=== PATIENT | male | born 2000 | race Caucasian/White ===

== ENCOUNTER 2024-12-14 12:34 | Emergency (ER) | payer BC, SELFPAY ==
[2024-12-14 12:37] VITALS: BP 112/71
[2024-12-14 12:58] LABS: % Basophils 0.6 % (0-2); % Eosinophils 1.2 % (0-6); % Immature Granulocytes 0.5 % (0-0.5); % Lymphocytes 23.5 % (20.5-51.1); % Monocytes 7.1 % (1.7-9.3); % Neutrophils 67.1 % (42.2-75.2); Absolute Basophils 0.1 10^3/uL (0-0.2); Absolute Eosinophils 0.1 10^3/uL (0-0.7); Absolute Monocytes 0.6 10^3/uL (0.1-0.6); Absolute Neutrophils 5.8 10^3/uL (1.4-6.5); Hematocrit 48.9 % (39.0-52.0); Hemoglobin 17.6 g/dL (13.0-18.0); Mean Corpuscular Hgb 29.2 pg (27.0-31.0); Mean Corpuscular Volume 81.2 fL (80.0-94.0); Mean Platelet Volume 9.5 fL (7.4-10.4); Nucleated Red Blood Cells % 0 % (-); Platelet Count 264 10^3/uL (130-400); Red Blood Cell Count 6.02 10^6/uL (4.70-6.10); Red Cell Dist. Width 12.1 % (11.5-14.5); White Blood Cell Count 8.6 10^3/uL (4.8-10.8)
--- NOTE | 2024-12-14 14:14 | ED.GENMED ---
History of Present Illness
General
Chief Complaint: Chest Pain
Time Seen by Provider: 12/14/24 14:13
History of Present Illness
History of Present Illness:
REVIEW OF OLD RECORDS
- The patient has no significant past medical history and there are no old records available for review in [facility]
Note:
CHIEF COMPLAINT(S)
Chest tightness and shortness of breath.
HISTORY OF PRESENT ILLNESS
The patient is a 24-year-old male who presents with a chief complaint of chest tightness and shortness of breath. The symptoms started approximately four to five days ago. About a month and a half ago, the patient experienced a similar sensation
described as 'slight heaviness' in the chest, which resolved after two days. Recently, he has been waking up with a 'tightness' sensation, raising concerns about symptom progression. The patient reports increased symptoms, such as shortness of
breath, with exertion, like walking up stairs. An initial electrocardiogram showed an incomplete right bundle branch block with no acute ischemic changes. Initial laboratory tests included a complete blood cell count, which was normal. However,
there were issues with serum chemistry results due to hemolysis. A repeat bloodwork was suggested to ensure accurate results, specifically concerning the troponin and potassium levels. The patient is a smoker and mentioned having something in his
throat, possibly related to smoking. Physical examination noted slight discomfort in the back, particularly when standing. The patient has no noticeable pain upon palpation of the chest. The healthcare team recommended a chest X-ray.
ADDITIONAL HISTORY OBTAINED FROM SOURCES OTHER THAN THE PATIENT
Per laboratory staff, the blood samples showed hemolysis, preventing accurate analysis of certain tests.
CHRONIC MEDICAL CONDITIONS SIGNIFICANTLY AFFECTING CARE
The patient has a history of smoking, which is relevant to the current presentation of chest symptoms.
FAMILY HISTORY
The patients father has a history of coronary artery disease with a coronary stent placed at age 55, indicating familial cardiac risk.
SOCIAL HISTORY
The patient is a smoker, which is a significant consideration in evaluating his symptoms and risk factors.
REVIEW OF SYSTEMS
- Cardiovascular: Reports chest tightness that worsens with exertion.
- Respiratory: Experiences shortness of breath, particularly upon exertion.
- Musculoskeletal: Reports slight back discomfort when standing.
PHYSICAL EXAM
- Respiratory: Auscultation revealed Ronchi, likely related to smoking.
- Musculoskeletal: Slight back discomfort noted, particularly when standing.
- Nursing notes reviewed and vital signs reviewed.
PLAN
- Repeat bloodwork to assess serum chemistry and troponin levels.
- Obtain a chest X-ray to evaluate potential respiratory causes for current symptoms.
DIFFERENTIAL DIAGNOSIS
The Differential Diagnosis includes, in no particular order and is not limited to:
1. Anxiety-related chest discomfort
2. Gastroesophageal reflux disease
3. Costochondritis
4. Atypical chest pain
5. Pulmonary embolism
6. Myocardial ischemia
7. Pneumonia
8. Asthma exacerbation
9. Acute bronchitis
10. Pneumothorax
RADIOLOGY
- Chest x-ray shows no consolidation
EKG
- Sinus 61, incomplete right bundle branch block, no acute ST abnormality, no old to compare
LABS
- CBC and chemistries unremarkable
UPDATE
-12/14/24 - 15:20
The patients recent blood work and x-ray revealed no signs of a heart attack or pneumonia, although seeing a enlisted advisor is recommended due to persistent chest tightness. The x-ray appeared normal, but confirmation from a radiologist is pending. No
signs of consolidation were noted, potentially indicating stress or smoking-related discomfort. Discontinuation of smoking was discussed to reduce long-term cardiovascular risks, especially with a family history of heart issues. The patient has been
advised to use [id number] Motrin for inflammation rather than aspirin, due to the latter�s gastrointestinal side effects. A breathing treatment will be administered before discharge to assess any potential reactive airway issues linked to
smoking. If improvement is noted, an inhaler may be considered. Discharge preparations are underway.
On reassessment at 3:35 PM, the patient reports no significant improvement after DuoNebs were given but he appears very comfortable with no apparent shortness of breath. Will try NSAIDs. I also recommend that he follows up with cardiology.
Phy Exam
Physical Exam
Physical Exam:
See HPI
Scores
Heart Score for Chest Pain Patients
STEMI patient?: Not applicable
Course
Orders/Labs/Results
Orders:
Orders
12/14/24 12:36
Electrocardiogram (*1) Urgent
Reason for Study: Chest Pain
Cardiac Monitoring- Treatment ONCE
EKG- Treatment ONCE
IV Insert/Care/Rem.- Treatment PRN
O2 Therapy [RESP] Urgent
Titrate/Wean O2 to maintain O2 sat greater than (%): 90
Special Instructions: Maintain sats >/=90%
Pulse Ox/spot Check [RESP] Urgent
Quantity: 1
Special Instructions: ON ROOM AIR
12/14/24 12:48
Complete Blood Count/With Diff Urgent
12/14/24 14:21
CR Chest - 2 Views Urgent
Comment:
Reason For Exam: pain
12/14/24 14:38
Comprehensive Metabolic Panel Urgent
Troponin I Urgent
12/14/24 15:20
Ipratropium/Albuterol Sulfate [Duoneb] 3 ml INH R NOW ONE
Abnormal Lab Results
12/14/24
14:38
Glucose 104 H mg/dl
(70-99)
ALT 132 H U/L
(0-50)
12/14/24 12:48
12/14/24 14:38
Vital Signs
Initial and Last Documented VS:
Initial Vital Signs
Temp Pulse Resp BP Pulse Ox
36.8 C 65 17 112/71 99
12/14/24 12:37 12/14/24 12:37 12/14/24 12:37 12/14/24 12:37 12/14/24 12:37
Last Documented Vital Signs
Temp Pulse Resp BP Pulse Ox
36.8 C 55 17 112/94 99
12/14/24 12:37 12/14/24 15:28 12/14/24 12:37 12/14/24 15:30 12/14/24 15:28
*Pulse Oximetry
Patient hypoxic: no (99% on room air)
*EKG
Interpreted by ED Provider?: Yes
EKG Intrepretation Date: 12/14/24
EKG Intrepretation Time: 14:15
Interpretation: normal
Heart Rate: 61
[place]: normal axis
Interval: normal interval
QRS Pattern: right bundle branch block (Incomplete right bundle branch block)
Ischemia: non-specific ST changes
*Critical Care Note
Total Time (30-74mins, 75-104mins- exclusive of procedures): Not Applicable
ED Attending Note
-
Portions of this chart may have been created with voice recognition software.� Occasional wrong word or��sound alike� substitutions may have occurred due to the inherent limitations of voice recognition software.
Discharge Plan
Departure
Referrals:
NONE,* [Family Provider, Internal Medicine]
Interventions
Interventions:
*Risk Screen - Suicide Last Done: 12/14/24 12:37
*General Assessment Last Done: 12/14/24 15:29
*Neglect/Abuse Screening Last Done: 12/14/24 12:37
*ED- Fall Risk Assessment Last Done: 12/14/24 15:29
*ED COVID-19 Vaccine History Last Done: 12/14/24 15:29
Discharge Date and Time
Print Language: SERBIAN
[2024-12-14 15:05] LABS: ALT (SGPT) 132 U/L (0-50); AST (SGOT) 48 U/L (17-59); Alkaline Phosphatase 88 U/L (38-126); Blood Urea Nitrogen 18 mg/dl (9-20); Calcium 9.8 mg/dl (8.4-10.2); Carbon Dioxide 26 mmol/L (22-30); Chloride 107 mmol/L (98-107); Glucose 104 mg/dl (70-99); Potassium 4.7 mmol/L (3.5-5.1); Sodium 141 mmol/L (135-145); Total Bilirubin 0.7 mg/dl (0.2-1.3); eGFR > 60.00
[2024-12-14 15:15] LABS: Troponin I < 0.012 ng/ml
[2024-12-14] MEDS: DUONEB 3 ML INH (15:20)
[2024-12-14 15:30] VITALS: BP 112/94
[2024-12-14] MEDS: MOTRIN 800 MG PO (15:50)
== END 2024-12-14 16:25 | disposition home or self-care (01) ==
LOC: EMR 12:34
PROVIDERS: Emergency Medicine; EMERGENCY PHYSICIAN Emergency Medicine
DX: R07.89 Other chest pain (principal); F17.200 Nicotine dependence, unspecified, uncomplicated
CPT/HCPCS: 99283; 94640; 71046; 80053; 84484; 85025; 93005